=== PATIENT | male | born 1960 | race Caucasian/White ===

== ENCOUNTER 2017-12-26 11:58 | Emergency (ER) | payer OTHER ==
[~2017-12-26] VITALS: Ht 180.3 cm; Wt 87.1 kg
[~2017-12-26 11:58] MED LIST: AFRIN 30 ML30 ML NAS; CIPRO500 M1 PO; CLARITIN10 M1 PO; DOXYCYCLINE MO100 MG PO; FLAGYL500 MG PO; KEFLEX500 M1 PO
--- NOTE | 2017-12-26 13:57 | ED GENERAL ADULT ---
History of Present Illness General Chief Complaint: General Adult Stated Complaint: SIB FOR FEVER X2 HRS Source: patient Exam Limitations: no limitations Vital Signs & Intake/Output Vital Signs & Intake/Output Vital Signs Date Time Temp Pulse Resp B/P B/P Pulse O2 O2 Flow FiO2 Mean Ox Delivery Rate 12/26 1451 101.0 12/26 1432 101.0 108 20 112/65 96 Room Air 12/26 1311 100.2 117 18 113/70 97 Room Air Allergies Coded Allergies: alcohol (Severe, ANAPHYLACTIC REACTION 05/24/17) cheese (Severe, ANAPHYLACTIC REACTION 05/24/17) mushroom (Severe, ANAPHYLACTIC REACTION 05/24/17) peach (Severe, ANAPHYLACTIC REACTION 05/24/17) peanut (Severe, ANAPHYLACTIC REACTON 05/24/17) shellfish derived (Severe, ANAPHYLACTIC REACTION 05/24/17) Penicillins (UNKNOWN WAS TOLD BY MD NOT TO TAKE 05/24/17) nut - unspecified (ANAPHYLAXIS 05/24/17) Uncoded Allergies: CHICKEN NOODLE SOUP (ANAPHYLAXIS PER PT 05/24/17) Reconcile Medications Cephalexin (Keflex) 500 MG CAPSULE 1 CAP PO Q6 abdominal infection . Loratadine (Claritin) 10 MG TABLET 1 TAB PO DAILY ALLERGIES (Reported) Metronidazole (Flagyl) 500 MG TABLET 1 TAB PO BID intra-abdominal infection . Triage Note: PT IS ON CHEMOTHERAPY AND 3 HOURS AGO HE BEGAN RUNNING A FEVER OF 102.6. PT STATES HE THINKS HE MIGHT HAVE A SINUS INFECTION. PT STATES HE HAS SINUS INFECTIONS OFTEN AND HE IS HAVING PRESSURE ABOVE HIS EYES AND WHEN HE BLOWS HIS NOSE IN THE AM HE HAD SOME BLOOD. PT TOOK APAP AT 1030 THIS AM FOR A KEARNS Triage Nurses Notes Reviewed? yes Onset: Abrupt Duration: day(s): (2), changing over time, continues in ED Timing: single episode today Injury Environment: home Severity: mild, moderate No Modifying Factors: none HPI: 57-year-old male past medical history of colon cancer with metastases to the liver on chemotherapy presents for evaluation of a fever. Patient states that he noticed a fever over the past 2-3 days he had a temperature max of 102 while at home. He took Tylenol last dose at 10 1000 mg with some improvement. He also reports sinus pressure or congestion and rhinorrhea as well as a cough. No abdominal pain, back pain, shortness of breath, hemoptysis, lower extremity edema. No chest pain or shortness of breath. No history of DVT or PE. No urinary symptoms. (Julian Stewart) Past History Travel History Traveled to [place] past 21 day No Medical History Any Pertinent Medical History? see below for history Neurological: NONE EENT: allergies Cardiovascular: NONE Respiratory: NONE Gastrointestinal: NONE Hepatic: NONE Renal: NONE Musculoskeletal: NONE Psychiatric: NONE Endocrine: NONE Blood Disorders: NONE Cancer(s): PROSTATE AND COLON CA History of MRSA: No History of VRE: No History of CDIFF: No Surgical History Surgical History: non-contributory Psychosocial History What is your primary language Danish Tobacco Use: Current Not Daily Daily Tobacco Use Amount/Type: =< 4 Cigarettes daily ETOH Use: occasional use Illicit Drug Use: denies illicit drug use Family History Hx Contributory? No (Julian Stewart) Review of Systems Review of Systems Constitutional: Reports: fever, malaise. EENTM: Reports: nasal congestion. Respiratory: Reports: see HPI, cough. Cardiovascular: Reports: no symptoms. GI: Reports: no symptoms. Genitourinary: Reports: no symptoms. Musculoskeletal: Reports: no symptoms. Skin: Reports: no symptoms. Neurological/Psychological: Reports: no symptoms. Hematologic/Endocrine: Reports: no symptoms. Immunologic/Allergic: Reports: no symptoms. All Other Systems: Reviewed and Negative (Julian Stewart) Physical Exam Physical Exam General Appearance: well developed/nourished, no apparent distress, alert, awake Head: atraumatic, normal appearance Eyes: Bilateral: normal appearance, PERRL, EOMI. Ears, Nose, Throat: normal pharynx, hearing grossly normal, sinus pain/drainage, nasal congestion, MAXILLARY SINUSES TENDER TO PALPATION BILATERALLY Neck: normal inspection, supple, full range of motion Respiratory: normal breath sounds, chest non-tender, no respiratory distress, lungs clear Cardiovascular: regular rate/rhythm, normal peripheral pulses Peripheral Pulses: 2+ radial (R), 2+ radial (L) Gastrointestinal: soft, non-tender Back: normal inspection, normal range of motion Extremities: normal inspection, normal range of motion, no edema Neurologic/Psych: no motor/sensory deficits, awake, alert, oriented x 3, normal gait Skin: intact, normal color, warm/dry Lymphatic: no anterior cervical lucas Core Measures ACS in differential dx? No CVA/TIA Diagnosis: No Sepsis Present: No Sepsis Focused Exam Completed? No (Julian Stewart) Progress Differential Diagnoses I considered the following diagnoses in my evaluation of the patient: [Sinusitis , pneumonia, UTI, pulmonary embolism, sepsis, febrile neutropenia] Diagnostic Imaging: Viewed by Me: Radiology Read. Discussed w/RAD: Radiology Read. Radiology Impression: PATIENT: FRED FRAIRE JR PRESENT AGE: 57 PATIENT ACCOUNT NO: [id number] : 61 LOCATION: [facility] ORDERING PHYSICIAN: Julian WEBER SERVICE DATE: 12/26/17 EXAM TYPE: RAD - XRY-CHEST XRAY, TWO VIEWS EXAMINATION: XR CHEST CLINICAL INFORMATION: Fever. COMPARISON: CT chest 06/12/2017 TECHNIQUE: 2 views of the chest were obtained. FINDINGS: Central port catheter tip at caval atrial junction. Lungs are clear. Cardiac and mediastinal contour are normal. No pulmonary vascular congestion or pleural effusion. The heart size is normal. IMPRESSION: No acute abnormality of chest. DICTATED BY: Mendoza Browne MD DATE/TIME DICTATED:12/26/171452 FOREIGN STUDENT ADVISER:ERENDIRA DATE/TIME TRANSCRIBED:12/26/171452 CONFIDENTIAL, DO NOT COPY WITHOUT APPROPRIATE AUTHORIZATION. <Electronically signed in Other Vendor System> SIGNED BY: Mendoza Browne MD 12/26/171457 Initial ED EKG: no ST T wave changes, SINUS TACH 117 (Julian Stewart) Plan of Care: Orders Procedure Date/time Status Add-on Test (ER Only) 12/26 1424 Active LACTIC ACID 12/26 1400 Complete EKG 12/26 1355 Active BLOOD CULTURE 12/26 1351 Active RAPID VIRAL INFLUENZA A 12/26 1348 Complete URINALYSIS 12/26 1348 Complete TROPONIN LEVEL 12/26 1348 Complete COMPREHENSIVE METABOLIC PANEL 12/26 1348 Complete CBC WITHOUT DIFFERENTIAL 12/26 1348 Complete Laboratory Tests 12/26/17 1455: Urine Color YEL, Urine Clarity CLEAR, Urine pH 7.0, Ur Specific [place] 1.010, Urine Protein NEG, Urine Ketones NEG, Urine Nitrite NEG, Urine Bilirubin NEG, Urine Urobilinogen 4.0 H, Ur Leukocyte Esterase NEG, Ur Microscopic EXAM NOT REQUIRED, Urine Hemoglobin NEG, Urine Glucose NEG 12/26/17 1400: Anion Gap 12, Estimated GFR > 60, BUN/Creatinine Ratio 12.9, Glucose 101 H, Lactic Acid 1.0, Calcium 9.2, Total Bilirubin 0.7, AST 44, ALT 37, Alkaline Phosphatase 167 H, Troponin I < 0.01, Total Protein 7.3, Albumin 4.3, Globulin 3.0, Albumin/Globulin Ratio 1.4, CBC w Diff NO MAN DIFF REQ, RBC 4.16 L, MCV 90.0, MCH 29.8, MCHC 33.1, RDW 18.3 H, MPV 7.8, Gran % 71.9, Lymphocytes % 20.6 , Monocytes % 7.2, Eosinophils % 0.1, Basophils % 0.2, Absolute Granulocytes 4.7 , Absolute Lymphocytes 1.3, Absolute Monocytes 0.5, Absolute Eosinophils 0, Absolute Basophils 0 Microbiology 12/26 1409 BLOOD: Blood Culture - RECD 12/26 1400 NASOPHARYN: Influenza Virus A & B Rapid Smear - COMP 12/26 1400 BLOOD: Blood Culture - RECD Patient seen and evaluated. He has a history of colon cancer with metastases to liver and is on chemotherapy. He had a fever for the past 2 days. He does have signs and symptoms of a sinus infection. His abdomen is soft and nontender. He currently has a temp of 101 and is mildly tachycardic. Patient was given a liter normal saline IV Toradol IV Tylenol. We'll check basic labs blood cultures ordered chest x-ray urinalysis. Blood work Is within normal limits. He is not neutropenic or anemic. Influenza testing is negative chest x-ray is clear urinalysis clear. Afebrile after receiving Toradol and Tylenol. Spoke with on-call oncologist and reviewed lab results because patient's white blood cell count is within normal limits he can be treated like any normal person with a fever. Patient will be started on doxycycline for possible sinus infection. Advised alternating Tylenol and ibuprofen every 6 hours. Discussed return precautions in detail. Patient appears well he feels better he agrees the plan. Case discussed with Dr. Albert he agrees. (Ricardo WEBER,Julian) (Bety YORK,Branden White) Departure Departure Disposition: HOME OR SELF CARE Condition: Stable Clinical Impression Primary Impression: Sinusitis Qualifiers: Sinusitis location: maxillary Chronicity: acute Recurrence: non- recurrent Qualified Code: J01.00 - Acute maxillary sinusitis, unspecified Referrals: Jorgito Wasserman MD (PCP/Family) Additional Instructions: Take antibiotics as directed for the full course. Alternate Tylenol and ibuprofen every 6 hours as needed for pain or fevers. Apply warm compresses to your sinuses. Flonase Nasonex as needed for sinus pressure. Make a follow-up with her oncologist for this coming week. Monitor symptoms closely return with any concerns. Departure Forms: Customer Survey General Discharge Information Prescriptions: Current Visit Scripts Doxycycline Hyclate 1 TAB PO BID #14 TAB (Julian Stewart) PA/BUFFING MACHINE TENDER Co-Sign Statement Statement: ED Attending supervision documentation- [] I saw and evaluated the patient. I have also reviewed all the pertinent lab results and diagnostic results. I agree with the findings and the plan of care as documented in the PA's/BUFFING MACHINE TENDER's documentation. [X] I have reviewed the ED Record and agree with the PA's/BUFFING MACHINE TENDER's documentation. [] Additions or exceptions (if any) to the PAs/BUFFING MACHINE TENDER's note and plan are summarized below: [] (Bety YORK,Branden White) Critical Care Note Critical Care Note Critical Care Time: non-applicable (Julian Stewart)
[2017-12-26 14:22] LABS: ABSOLUTE BASOPHIL COUNT 0 /CUMM (0.0-0.2); ABSOLUTE EOSINOPHIL COUNT 0 /CUMM (0.0-0.7); ABSOLUTE GRANULOCYTE CT 4.7 /CUMM (1.4-6.5); ABSOLUTE LYMPH COUNT 1.3 /CUMM (1.2-3.4); ABSOLUTE MONOCYTE COUNT 0.5 /CUMM (0.10-0.60); BASOPHIL % 0.2 % (0.0-2.0); EOSINOPHIL % 0.1 % (0-5); GRANULOCYTE % 71.9 % (42.2-75.2); HEMATOCRIT 37.4 % (42-52); MEAN CORPUSCULAR HGB 29.8 PG (27.0-31.0); MEAN CORPUSCULAR HGB CONC 33.1 G/DL (33.0-37.0); MEAN PLATELET VOLUME 7.8 FL (7.4-10.4); PLATELET COUNT 178 /CUMM (130-400); RBC DISTRIBUTION WIDTH 18.3 % (11.5-14.5); RED BLOOD CELL CT 4.16 /CUMM (4.70-6.10); WHITE BLOOD CELL COUNT 6.5 /CUMM (4.8-10.8)
--- NOTE | 2017-12-26 14:58 | RADIOLOGY REPORT ---
EXAMINATION: XR CHEST CLINICAL INFORMATION: Fever. COMPARISON: CT chest 06/12/2017 TECHNIQUE: 2 views of the chest were obtained. FINDINGS: Central port catheter tip at caval atrial junction. Lungs are clear. Cardiac and mediastinal contour are normal. No pulmonary vascular congestion or pleural effusion. The heart size is normal. IMPRESSION: No acute abnormality of chest.
[2017-12-26] MEDS ORDERED: DOXYCYCLINE HY100 M4 PO (16:24)
[2017-12-26 16:40] VITALS: BP 98/60
== END 2017-12-26 16:41 ==
LOC: ERH 11:58
PROVIDERS: Physician Assistant Medical
DX: J32.9 Chronic sinusitis, unspecified (principal); F17.210 Nicotine dependence, cigarettes, uncomplicated
CPT/HCPCS: 71046; 81003; 87040; 87804; 87804-59; 93005; 93010; 96361; 96374; J0131; J1885